=== PATIENT | male | born 2000 ===

== ENCOUNTER 2021-04-12 18:59 | Emergency (ER) | payer OTHER ==
[2021-04-12 19:13] VITALS: BP 140/71
--- NOTE | 2021-04-12 19:39 | ED Physician Documentation ---
History of Present Illness - Stated complaint Stated Complaint: LT PINKY FINGER INJURY - Chief complaint Chief Complaint: Trauma Ext - History obtained from History obtained from: Patient - Additonal information Additional information: Patient was playing basketball when the basketball hit his left small finger awkwardly. He presents with mild and swelling in the left pinky finger. No treatment prior to arrival. Review of Systems Ten Systems: 10 systems reviewed and negative Constitutional: reports: Reviewed and negative Eyes: reports: Reviewed and negative Ears: reports: Reviewed and negative Nose: reports: Reviewed and negative Throat: reports: Reviewed and negative Cardiac: reports: Reviewed and negative Respiratory: reports: Reviewed and negative GI: reports: Reviewed and negative : reports: Reviewed and negative Skin: reports: Reviewed and negative Musculoskeletal: reports: Joint pain (left pinky finger) PD PAST MEDICAL HISTORY - Past Medical History Past Medical History: No Cardiovascular: None Respiratory: None Neuro: None Endocrine/Autoimmune: None GI: None : None HEENT: None Psych: None Musculoskeletal: None Derm: None - Past Surgical History Past Surgical History: No - Present Medications Home Medications: Ambulatory Orders Medication Instructions Recorded Confirmed No Known Home Medications 04/12/21 04/12/21 - Allergies Allergies/Adverse Reactions: Allergies Allergy/AdvReac Type Severity Reaction Status Date / Time No Known Drug Allergies Allergy Verified 04/12/21 19:12 - Social History Does the pt smoke?: No Smoking Status: Never smoker Does the pt drink ETOH?: No Does the pt have substance abuse?: No - Immunizations Immunizations are current?: Yes - POLST Patient has POLST: No PD ED PE NORMAL - Vitals Vital signs reviewed: Yes - General General: Alert and oriented X 3, No acute distress, Well developed/nourished - HEENT HEENT: Atraumatic - Derm Derm: Normal color, Warm and dry, No rash - Extremities Extremities: Other (There is a small amount of swelling of the left pinky finger, there is very mild tenderness at the PIP joint, patient has good range of motion with no tenderness in hand.) - Neuro Neuro: Alert and oriented X 3, No motor deficit, No sensory deficit, Normal speech Eye Opening: Spontaneous Motor: Obeys Commands Verbal: Oriented GCS Score: 15 - Psych Psych: Normal mood, Normal affect Results - Vitals Vitals: Vital Signs - 24 hr 04/12/21 19:11 Temperature 36.4 C L Heart Rate 87 Respiratory 16 Rate Blood Pressure 140/71 H O2 Saturation 99 Oxygen O2 Source Room air PD MEDICAL DECISION MAKING - ED course Complexity details: reviewed results, d/w patient ED course: 20-year-old male who presents with a fracture of the Proximal phalanx of the left fifth digit. He was placed in a finger splint and advised on supportive measures including ibuprofen, Tylenol, rest, cool compress. He may follow-up with Ortho as needed. Departure - Departure Disposition: 01 Home, Self Care Clinical Impression: Fracture of proximal phalanx of finger of left hand Condition: Good Instructions: ED Fx Finger Closed Follow-Up: Babak Corona MD [Provider Admit Priv/Credential] - As Needed (for left 5th digit fracture ) Comments: You have a fracture of your pinky finger. Will place a splint on this and a typically here on her own within several weeks. He has a splint as often as possible. He may use an ice pack, ibuprofen or Tylenol for pain. May follow-up with Ortho as needed.
--- NOTE | 2021-04-12 19:52 | XRAY Report ---
PROCEDURE: Finger(s) LT INDICATIONS: trauma TECHNIQUE: AP hand, 2 views of the fifth digit acquired. COMPARISON: None. FINDINGS: Bones: There is a mildly displaced avulsion fracture of the base of the fifth middle phalanx extendin g to the proximal interphalangeal joint. No suspicious bony lesions. Soft tissues: There is periarticular soft tissue swelling around the fifth proximal interphalangeal joint. No suspicious soft tissue calcifications. IMPRESSION: 1. Mildly displaced avulsion fracture at the base of the fifth middle phalanx. Reviewed by: Scout King MD on 04/12/2021 7:51 PM PDT Approved by: Scout King MD on 04/12/2021 7:51 PM PDT Station ID: [id number]
== END 2021-04-12 20:04 | disposition home or self-care (01) ==
LOC: ED 18:59
DX: S62.627A Displaced fracture of middle phalanx of left little finger, initial encounter for closed fracture (principal); W21.05XA Struck by basketball, initial encounter; Y93.67 Activity, basketball
CPT/HCPCS: 99283